=== PATIENT | female | born 1940 | race African-American/Black ===

== ENCOUNTER 2016-09-07 21:21 | Emergency (ER) | payer MEDICARE, BC ==
--- NOTE | ~2016-09-07 | CR72 ---
[facility] A Service of [facility] & [facility] RADIOLOGY TEXT RESULTS PATIENT: TASNEEM CALZADA LOCATION: [facility] : 36 UNIT #: [id number] AGE: [address]: Macho Camilo MD SEX: F ORDER DR: [id number] [facility] [address] [place], [place] [address] [id number] E MR#: [id number] Acc #: [id number] NAME: TASNEEM CALZADA : 1940 SEX: F STUDY DATE/TIME: 09/07/2016 19:54 UNIT: [facility] ROOM: STUDY DESCRIPTION: CR Chest Single View Portable Attending Physician: Diaz Camilo M.D. Referring Physician: Phan Cruz M.D. Ordering Physician: Edison Vazquez M.D. Primary Care Physician: Phan Cruz M.D. MEDICAL IMAGING REPORT This report is preliminary unless electronic signature is present EXAM Chest portable, 09/07/2016 HISTORY Chest pain and cough and generalized weakness today. Benign essential hypertension. FINDINGS The heart is normal in size. Question is raised of some ill-defined infiltrate in the right upper lobe concerning for pneumonia. The remaining lung lemus are clear. There are no pleural effusions. IMPRESSION Ill-defined infiltrate right upper lobe could reflect pneumonia. Dictated by... Shiva Walden M.D. THIS IS AN ELECTRONICALLY VERIFIED REPORT Shiva Walden M.D. at 09/08/2016 2:18 PM KRT/yousuf TD: 09/08/2016 04:23 JOB #: [id number] MEDICAL IMAGING REPORT COPY
--- NOTE | ~2016-09-07 | EKG ---
PATIENT: TASNEEM CALZADA UNIT #: [id number] Ventricular Rate: 90 BPM Atrial Rate: 90 BPM P-R Interval: 176 ms QRS Duration: 100 ms Q-T Interval: 384 ms QTC Calculation(Bezet): 469 ms P [place]: 73 degrees Calculated R [place]: -62 degrees Calculated T [place]: 40 degrees Diagnosis Line: Normal sinus rhythm Diagnosis Line: Left anterior fascicular block Diagnosis Line: Abnormal ECG Diagnosis Line: No previous ECGs available Diagnosis Line: Confirmed by MIKHAIL SANCHEZ MD ([id number]) on 09/08/2016 Diagnosis Line: 5:42:27 PM INTERPRETING MD: LAURA GARCIA
--- NOTE | ~2016-09-07 | CT16 ---
[facility] A Service of [facility] & [facility] RADIOLOGY TEXT RESULTS PATIENT: TASNEEM CALZADA LOCATION: [facility] : 38 UNIT #: [id number] AGE: [address]: Macho Camilo MD SEX: F ORDER DR: [id number] [facility] [address] [place], [place] [address] [id number] E MR#: [id number] Acc #: [id number] NAME: TASNEEM CALZADA. : 1940 SEX: F STUDY DATE/TIME: 09/07/2016 22:48 UNIT: [facility] ROOM: STUDY DESCRIPTION: CT Angio Chest for PE Attending Physician: Diaz Camilo M.D. Referring Physician: Phan Cruz M.D. Ordering Physician: Ed Doctor [id number] [facility] Primary Care Physician: Phan Cruz M.D. MEDICAL IMAGING REPORT This report is preliminary unless electronic signature is present EXAM Chest CTA 09/07/2016 22:48 INDICATION Elevated D-dimer this evening measuring 1,757. Dizziness, weakness with cough for the last 2 days. Patient had syncopal episode x2. TECHNIQUE Axial images were obtained through the chest following IV contrast administration. 3-D reformats were obtained. No comparison chest CT. This CT examination was performed with one or more of the following radiation dose reduction techniques: automatic exposure control, adjustment of mA and/or kV according to patient size, and iterative reconstruction. FINDINGS There is no pulmonary embolism or aortic dissection. There is no pleural or pericardial effusion. There is no adenopathy. There is bilateral upper lobe pulmonary parenchymal scarring. Additionally, ground-glass infiltrates are noted in the right upper lobe as well and to a lesser degree in the superior segment of the right lower lobe. These probably represent areas of focal pneumonitis. The left lung is clear otherwise. The upper abdomen is unremarkable. IMPRESSION 1. No pulmonary embolism or aortic dissection. 2. Ground-glass infiltrates in the right upper lobe and to a lesser degree in the superior segment of the right lower lobe which likely reflect a mild degree of pneumonitis/pneumonia. 3. Biapical pulmonary parenchymal densities probably reflects scarring. I would recommend a followup chest CT in about 3 months to document stability or improvement in all of the above-mentioned findings. [facility] A Service of [facility] RADIOLOGY TEXT RESULTS PATIENT: TASNEEM CALZADA LOCATION: [facility] : 38 UNIT #: [id number] AGE: [address]: Macho Camilo MD SEX: F ORDER DR: Dictated by... Jones Bond Jr., M.D. THIS IS AN ELECTRONICALLY VERIFIED REPORT Jones Bond Jr., M.D. at 09/08/2016 9:59 PM MINA/chelsea TD: 09/08/2016 06:46 JOB #: [id number] MEDICAL IMAGING REPORT COPY
[2016-09-07 19:27] LABS: BASOPHIL% 0.3 % (0-2.5); HEMATOCRIT 38.2 % (35.0-45.0); HEMOGLOBIN 12.5 gm/dL (12.0-16.0); LYMPHOCYTE# 0.7 X10e3 (1.0-3.5); LYMPHOCYTE% 5.3 % (17.0-45.0); MEAN CELL VOLUME 91.5 FL (83-96); MEAN CORPUSCULAR HGB CONC 32.8 g/dL (30-36); MEAN PLATELET VOLUME 7.9 FL (6.5-11.5); MONOCYTE# 1.1 X10e3 (0-1.0); MONOCYTE% 8.5 % (3.0-12.0); NEUTROPHIL# 11.5 X10e3 (1.5-7.1); NEUTROPHIL% 85.9 % (40-75); PLATELET COUNT 209 X10e3 (140-420); RED BLOOD COUNT 4.17 X10e (3.90-5.30); RED CELL DISTRIBUTION WIDTH 13.2 % (11.0-15.5); WHITE BLOOD COUNT 13.4 X10e3 (4.0-10.5)
[2016-09-07 19:28] LABS: DIFF IND NO
[2016-09-07 19:48] LABS: ALBUMIN SERUM 4.1 g/dL (3.5-5.0); ALKALINE PHOSPHATASE 54 U/L (32-92); ALT (SGPT) 14 U/L (10-40); AST (SGOT) 20 U/L (10-42); BILIRUBIN, DIRECT 0.2 mg/dL (0.0-0.2); BILIRUBIN,INDIRECT 0.9 mg/dL (0.0-0.9); BILIRUBIN,TOTAL 1.1 mg/dL (0.2-2.0); BLOOD UREA NITROGEN 16 mg/dL (9-23); BUN/CREATININE RATIO 17.77; CALCIUM SERUM 9.3 mg/dL (8.4-10.2); CARBON DIOXIDE 25 mmol/L (22-31); CHLORIDE 101 mmol/L (100-111); CREATININE SERUM 0.9 mg/dL (0.6-1.4); GLOM FILT RATE Estimated ABOVE60 mL/min (>60); GLUCOSE FASTING 138 mg/dL (70-110); POTASSIUM 4.1 mmol/L (3.5-5.1); PROTEIN TOTAL SERUM 7.6 g/dL (6.0-8.3); SODIUM 136 mmol/L (135-145)
[2016-09-07 20:19] LABS: POC - CKMB <1.0 ng/mL (0.0-7.9); POC - TROPONIN <0.05 ng/mL (<=0.05)
[~2016-09-07 21:21] MED LIST: AMOXICILLIN PO; ASPIRIN PO; KCL PO; LISINOPRIL PO; MULTIVITAMIN W-1 TAB PO; NORVASC PO; PREMARIN PO; TOPROL XL PO
[2016-09-07 21:22] LABS: POC - CKMB <1.0 ng/mL (0.0-7.9); POC - TROPONIN <0.05 ng/mL (<=0.05)
[2016-09-07] MEDS ORDERED: D3 PO (22:20)
[2016-09-07] MEDS ORDERED: AMLODIPINE BESYL5 MG PO (22:20)
== END 2016-09-08 00:45 | disposition home or self-care (01) ==
LOC: CED 21:21
PROVIDERS: Emergency Medicine
DX: J18.1 Lobar pneumonia, unspecified organism (principal); R55 Syncope and collapse; Z90.49 Acquired absence of other specified parts of digestive tract; Z90.710 Acquired absence of both cervix and uterus; I10 Essential (primary) hypertension
CPT/HCPCS: 36415; 71010; 71275; 80048; 80076; 82553; 82947; 84484; 85025; 85379; 93005; 99284; Q9967